=== PATIENT | female | born 1990 | race African-American/Black ===

== ENCOUNTER 2019-06-15 19:39 | Inpatient (IN) | payer OTHER ==
--- NOTE | 2019-06-15 19:47 | PDOC ---
History of Present Illness - General Chief Complaint: Weakness Stated Complaint: WEAKNESS History Source: Parent(s) - History of Present Illness Initial Comments: 06/15/19 20:22 Patient is a 29 year old female with PMH of cerebral palsy and HTN who presents with AMS. Pt is poor historian, mother at bedside to assist with history. Pt was last seen at baseline this afternoon. Around 4:30pm, her sister noticed pt' s eyes were glazed over, she was ambulating uneasily, and appeared "out of it". Then, around 6:30pm, her mother went to get her for dinner and pt was complaining of dizziness and again seemed "off and not feeling well". Pt's mother reports that she has not taken any of her prescribed medications for a month because they "ran out". When asked why they did not contact pt's PCP, they report they were "unable to get ahold of her". Pt last saw her PCP 6 months ago. They deny any seizures or falls. No recent illnesses or sick contacts. Deny alcohol or drug use. Pt vomited once when arriving to ED. She is alert and oriented x3 but is slow to respond. Can follow commands. When asked, reports she is dizzy, but denies any other symptoms. PCP: Dr. Daniels ([place]) PMH: per HPI Surgery hx: denies Allergies: NKDA Meds: HCTZ 25mg, enalapril 5mg, norvasc 5mg Past History - Past Medical History Allergies/Adverse Reactions: Allergies Allergy/AdvReac Type Severity Reaction Status Date / Time No Known Allergies Allergy Verified 06/15/19 20:33 - Psycho Social/Smoking Cessation Hx Smoking History: Never smoked Have you smoked in the past 12 months: No Information on smoking cessation initiated: No Hx Alcohol Use: No Drug/Substance Use Hx: No *Physical Exam - Vital Signs Last Vital Signs Temp Pulse Resp BP Pulse Ox 97.6 F 76 18 174/126 H 100 06/15/19 19:40 06/15/19 19:40 06/15/19 19:40 06/15/19 19:40 06/15/19 19:40
[2019-06-15] MEDS ORDERED: amLODIPine BESYLATE 5 MG TABLET (FP) PO ONE (20:21)
--- NOTE | 2019-06-15 20:31 | PDOC ---
Documentation entered by Santos Hager SCRIBE, acting as scribe for Niru Carrasquillo DO. Niru Carrasquillo DO: This documentation has been prepared by the Madan simon Daniel, SCRIBE, under my direction and personally reviewed by me in its entirety. I confirm that the documentation accurately reflects all work, treatment, procedures, and medical decision making performed by me. Attending Attestation - Resident Resident Name: Mayelin Hickman - ED Attending Attestation I have performed the following: I have examined & evaluated the patient, The case was reviewed & discussed with the resident, I agree w/resident's findings & plan, Exceptions are as noted - HPI HPI: 06/15/19 20:43 The patient is a 29 year old female with a past medical history of cerebral palsy, HTN, and blindness here today for evaluation of altered mental status. The patients mother reports that the patient came home from her day program and was off balanced and not herself. The mother reports that the patient hasn t taken her medications in one month and hasnt seen her doctor in 6 months. The mother states that the patient has had her normal PO intake and that the family had a cold last week. Patient reports feeling dizzy especially when sitting up. Patient vomited once while in the ER. The patients mother notes one similar episode that happened last year. Patient denies any pain. Allergies: NKA PCP: Dr. Daniels ([facility]) - Physicial Exam PE: 06/15/19 20:43 Constitutional: Awake, alert, oriented. No acute distress. Head: Normocephalic. Atraumatic Eyes: +eye gaze issues secondary to blindness. EOMI. Conjunctivae are not pale. ENT: Mucous membranes are moist and intact. Posterior pharynx without exudates or erythema. Uvula midline. Neck: Supple. Full ROM. No lymphadenopathy. Cardiovascular: Regular rate. Regular rhythm. S1, S2 regular. Distal pulses are 2+ and symmetric. Pulmonary/Chest: No evidence of respiratory distress. Clear to auscultation bilaterally No wheezing, rales or rhonchi. Abdominal: Soft and non-distended. There is no tenderness. No rebound, guarding or rigidity. No organomegaly. No palpable masses. Good bowel sounds. Back: No CVA tenderness. Musculoskeletal: No edema. No cyanosis. No clubbing. Full range of motion in all extremities. No calf tenderness. Radial/pedal pulses are intact and 2+ bilaterally Skin: Skin is warm and dry. No petechiae. No purpura. Neurological: Alert and oriented to person, place, and time. Cranial nerves II -XII are grossly intact. Normal speech. Strength is grossly symmetric. No sensory deficits. Psychiatric: Normal interaction, affect and behavior. - Medical Decision Making 06/15/19 20:28 I, Dr. Niru Carrasquillo, DO, attest that this document has been prepared under my direction and personally reviewed by me in its entirety. I further attest, that it accurately reflects all work, treatment, procedures and medical decision -making performed by me. 06/15/19 20:28 a/p: 29yo female with hx of CP - treated at [facility] and hx of htn who has been off her meds x 1m -came home from day program confused, glazed look, altered, off balance -denies falls -c/o feeling lightheaded when she sits up -denies symptoms at this time -has not had BP meds x 1m -last seen by PMD x 6m ago -will send labs, ekg, trop, head ct, cxr -will straight cath for ua -neuro at baseline -speech at baseline -will start norvasc -prior meds show norvasc, hctz, enalapril -will monitor and reassess 06/15/19 22:13 pt with elevated wbc head ct shows chronic congenital changes ua without infection cxr pending EKG from 2018 shows t wave inversions anterior leads so ekg is unchanged from prior 06/15/19 23:04 cxr clear 06/15/19 23:05 bp still elevated will add hctz 06/15/19 23:15 pt with a near syncopal episode, altered ms earlier today with elevated bp will need obs tele 06/15/19 23:39 case discussed with JOSEHONY who accepts pt to service family and patient updated on labs and imaging Discharge - Discharge Information Problems reviewed: Yes Clinical Impression/Diagnosis: Near syncope, Uncontrolled hypertension Condition: Fair - Admission Yes - Follow up/Referral Referrals: Mayelin Daniels MD [Primary Care Provider] - - Patient Discharge Instructions - Post Discharge Activity Heart Score/ECG Review - ECG Intrepretation Comment:: 06/15/19 21:16 sinus at 78, nl axis, t wave inversions v2-3, abnl ekg, - call placed to [facility] to obtain prior EKG, trop pending
[2019-06-15 20:59] LABS: BASO % 0.7 % (0-2.0); HEMATOCRIT 31.8 % (32.4-45.2); HEMOGLOBIN 9.9 GM/dL (10.7-15.3); LYMPH % 14.4 % (8-40); MEAN CELL VOLUME 74.1 fl (80-96); MONO % 3.7 % (3.8-10.2); NEUT % 80.2 % (42.8-82.8); PLATELET COUNT 350 K/MM3 (134-434); RBC 4.29 M/mm3 (3.60-5.2); RDW 13.2 % (11.6-15.6); WHITE BLOOD COUNT 14.9 K/mm3 (4.0-10.0)
[2019-06-15] MEDS ORDERED: amLODIPine BESYLATE 5 MG TABLET (FP) ONE (21:12)
[2019-06-15 21:41] LABS: ALBUMIN 3.3 g/dl (3.4-5.0); ALK PHOS 56 U/L (45-117); ANION GAP 8 MMOL/L (8-16); BILIRUBIN,TOTAL 0.2 mg/dL (0.2-1); BLOOD UREA NITROGEN 11.2 mg/dL (7-18); CALCIUM 8.7 mg/dL (8.5-10.1); CHLORIDE 107 mmol/L (98-107); CO2 25 mmol/L (21-32); CREATININE 0.5 mg/dL (0.55-1.3); GLUCOSE,RANDOM 92 mg/dL (74-106); POTASSIUM 3.9 mmol/L (3.5-5.1); SGOT/AST 12 U/L (15-37); SGPT/ALT 19 U/L (13-61); SODIUM 141 mmol/L (136-145); TOT PROT 7.2 g/dl (6.4-8.2)
[2019-06-15 22:11] LABS: EPI CELLS 5.5 /HPF (0-5/HPF); HYALINE CASTS 6 /lpf (0-8); URINE APPEARANCE CLOUDY; URINE BILIRUBIN NEGATIVE (NEGATIVE); URINE COLOR YELLOW; URINE GLUCOSE (UA) NEGATIVE (NEGATIVE); URINE KETONE NEGATIVE (NEGATIVE); URINE LEUK ESTERASE NEGATIVE (NEGATIVE); URINE NITRITE NEGATIVE (NEGATIVE); URINE PROTEIN TRACE (NEGATIVE); URINE RBC 4 /hpf (0-4); URINE WBC 1 /hpf (0-5)
[2019-06-15] MEDS ORDERED: HYDROCHLOROTHIAZIDE 25 MG TABLET (FP) PO ONE (23:05)
[2019-06-15] MEDS ORDERED: HYDROCHLOROTHIAZIDE 25 MG TABLET (FP) ONE (23:15)
--- NOTE | 2019-06-16 00:13 | PN ---
Teaching Attending Note Name of Resident: Saeed Benson ATTENDING PHYSICIAN STATEMENT I saw and evaluated the patient. I reviewed the resident's note and discussed the case with the resident. I agree with the resident's findings and plan as documented. SUBJECTIVE: 29 year old female with PMH of cerebral palsy and HTN who presents with AMS As observed by her sister and mother. Pt's mother reported that she has not taken any of her prescribed medications for a month because they "ran out". When asked why they did not contact pt's PCP, they report they were "unable to get ahold of her" OBJECTIVE: Last Vital Signs Temp Pulse Resp BP Pulse Ox 97.8 F 83 18 169/109 H 100 06/15/19 20:07 06/15/19 22:35 06/15/19 22:35 06/15/19 22:35 06/15/19 22:35 GENERAL: Well developed, well nourished. Awake and alert. No acute distress. HEENT: Normocephalic, atraumatic. PERRLA, EOMI. No conjunctival pallor. Sclera are non- icteric. Moist mucous membranes. Oropharynx is clear. NECK: Supple. Full ROM. No JVD. Carotid pulses 2+ and symmetric, without bruits. No thyromegaly. No lymphadenopathy. CARDIOVASCULAR: Regular rate and rhythm. No murmurs, rubs, or gallops. Distal pulses are 2+ and symmetric. PULMONARY: No evidence of respiratory distress. Lungs clear to auscultation bilaterally. No wheezing, rales or rhonchi. ABDOMINAL: Soft. Non-tender. Non-distended. No rebound or guarding. No organomegaly. Normoactive bowel sounds. MUSCULOSKELETAL Normal range of motion at all joints. No bony deformities or tenderness. No CVA tenderness. EXTREMITIES: No cyanosis. No clubbing. No edema. No calf tenderness. SKIN: Warm and dry. Normal capillary refill. No rashes. No jaundice. NEUROLOGICAL: Alert, awake, appropriate. Cranial nerves 2-12 intact. No deficits to light touch and temperature in face, upper extremities and lower extremities. No motor deficits in the in face, upper extremities and lower extremities. Normoreflexic in the upper and lower extremities. Normal speech. Toes are down- going bilaterally. Gait is normal without ataxia. PSYCHIATRIC: Cooperative. Good eye contact. Appropriate mood and affect. Abnormal Lab Results 12/11/19 12/11/19 12/11/19 20:51 20:51 21:00 WBC 14.9 H Hgb 9.9 L Hct 31.8 L MCV 74.1 L MCH 23.0 L MCHC 31.0 L Absolute Neuts (auto) 12.0 H Monocytes % 3.7 L Creatinine 0.5 L AST 12 L Albumin 3.3 L Urine Blood 3+ H Imaging studies reviewed Head CT reviewed with reportno CT evidence of acute intracranial pathology, marketed symmetric exvacuodilatation of the lateral ventricles is noted posteriorly probably on a congenital basis. EKG showed sinus rhythm ASSESSMENT AND PLAN: Severe asymptomatic hypertension Altered mental statusresolved Leukocytosisno evidence of infection Admit to MedSurg Check orthostatics Ordered clonidine 0.2 mg p.o. stat for severe asymptomatic hypertension Monitor vital signs closely Restart home blood pressure medications and titrate accordingly 2 g sodium diet Transthoracic echo Avoid sedatives including opiates at this time Trend CBC Monitor electrolytes and replete PRN Heparin subcutaneously for DVT prophylaxis
[2019-06-16] MEDS ORDERED: amLODIPine BESYLATE 5 MG TABLET (FP) PO ONE (00:15)
[2019-06-16] MEDS ORDERED: amLODIPine BESYLATE 5 MG TABLET (FP) ONE (00:19)
[2019-06-16] MEDS ORDERED: cloNIDine HCL 0.1 MG TABLET PO ONE (00:23)
[2019-06-16] MEDS ORDERED: cloNIDine HCL 0.1 MG TABLET ONE (00:28)
[2019-06-16 00:36] LABS: URINE BACTERIA 5 /hpf (NEGATIVE)
--- NOTE | 2019-06-16 02:02 | HP ---
CHIEF COMPLAINT: AMS PCP: Mayelin Daniels MD (Located within [facility]) HISTORY OF PRESENT ILLNESS: 29 y/o female PMH cerebral palsy, BL blindness from , and HTN c/o sensation of unsteadiness. She states that after a hot shower this afternoon 15 Jun 2019, she felt unsteady on her feet. She endorses dizziness but no SOB, CP, or CHISHOLM. No fall, tongue biting, seizure, aura, and LOC. Grandmother/HCP at bedside, Penny, says that the pt was not verbally responding with usual rapidity. Later in the evening the pt had home-made spinach and fried chicken, shortly after vomited x2 food containing, NBNB emesis. She denies nausea, diarrhea, constipation, chills, and fever. She attends [facility] () day- time special needs care facility and had NOT experienced similar symptoms earlier. Other people in have been sick but the pt denies recent illness, travel, or new foods. She is able to walk short distances at home but otherwise uses wheelchair for mobility. The grandmother woefully endorses that she has not been able to get the pt's regular home medications for some time; she estimates 1 month 2/2 family stress and heavy work load from [employer]. These medications include 3 antihypertensives. Med rec from pharmacy reveals rx have not been collected since December 2018. 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 She endorses increase in duration of menses to 1 week from 5 days since 2018. She uses 4 pads per day. She denies dysuria, polyuria, and hematuria. ER course was notable for: (1) Persistent elevated BP tx: Amlodepine 5 mg PO 20:21, hctz 12.5 mg 23:05 (180 /114), amlodepine 5 mg PO 00:15 (200/127), and clonidine 0.2 mg PO 00:23 (122/76 ) (2) CT head negative Recent Travel: Denies PAST MEDICAL HISTORY: Cerebral palsy, BL blindness from , and HTN Family History: Mother PAST SURGICAL HISTORY: Denies Social History: Smoking: Never Alcohol: Never Drugs: Never Lived at home with grandmother and 18 y/o brother whom attends [employer]. Sexual history: Not sexually active, no h/o STI Allergies: No Known Allergies Allergy (Verified 06/15/19 20:33) HOME MEDICATIONS: Medication Instructions Recorded Amlodipine Besylate 5 mg PO DAILY 06/16/19 Ascorbic Acid/Ascorbate Sodium 250 mg PO DAILY 06/16/19 [Vitamin C 250 mg Tablet Chew] Cholecalciferol (Vitamin D3) 1 tablet PO DAILY 06/16/19 [Vitamin D3] Enalapril Maleate 5 mg PO DAILY 06/16/19 Ferrous Sulfate [Iron] 325 mg PO DAILY 06/16/19 REVIEW OF SYSTEMS CONSTITUTIONAL: Absent: fever, chills, diaphoresis, generalized weakness, malaise, loss of appetite, weight change HEENT: Absent: rhinorrhea, nasal congestion, throat pain, throat swelling, difficulty swallowing, mouth swelling, ear pain, eye pain, visual changes CARDIOVASCULAR: Absent: chest pain, syncope, palpitations, irregular heart rate, lightheadedness , peripheral edema RESPIRATORY: Absent: cough, shortness of breath, dyspnea with exertion, orthopnea, wheezing, stridor, hemoptysis GASTROINTESTINAL: Absent: abdominal pain, abdominal distension, nausea, vomiting, diarrhea, constipation, melena, hematochezia GENITOURINARY: Absent: dysuria, frequency, urgency, hesitancy, hematuria, flank pain, genital pain MUSCULOSKELETAL: Absent: myalgia, arthralgia, joint swelling, back pain, neck pain SKIN: Absent: rash, itching, pallor HEMATOLOGIC/IMMUNOLOGIC: Absent: easy bleeding, easy bruising, lymphadenopathy, frequent infections ENDOCRINE: Absent: unexplained weight gain, unexplained weight loss, heat intolerance, cold intolerance NEUROLOGIC: Absent: headache, focal weakness or paresthesias, dizziness, unsteady gait, seizure, mental status changes, bladder or bowel incontinence PSYCHIATRIC: Absent: anxiety, depression, suicidal or homicidal ideation, hallucinations. PHYSICAL EXAMINATION Vital Signs - 24 hr 06/15/19 06/15/19 06/15/19 19:40 20:07 22:35 Temperature 97.6 F 97.8 F Pulse Rate 76 Pulse Rate [ 83 Apical] Respiratory 18 18 Rate Blood Pressure 174/126 H Blood Pressure 169/109 H [Right Arm] O2 Sat by Pulse 100 100 Oximetry (%) 06/16/19 06/16/19 06/16/19 00:14 00:22 00:33 Temperature Pulse Rate Pulse Rate [ 76 87 81 Apical] Respiratory 20 20 16 Rate Blood Pressure Blood Pressure 180/120 H 200/127 H 178/109 H [Right Arm] O2 Sat by Pulse 100 100 100 Oximetry (%) 06/16/19 06/16/19 00:57 01:32 Temperature Pulse Rate Pulse Rate [ 72 77 Apical] Respiratory 20 18 Rate Blood Pressure Blood Pressure 156/111 H 122/76 [Right Arm] O2 Sat by Pulse 100 100 Oximetry (%) Orthostatic NEGATIVE GENERAL: AOx3, in no acute distress, resting in bed HEAD: NCAT EYES: LUI. BL blindness. Only able to appreicate gross movement and light/ dark. LEFT eye abducted on forward gaze. ENT: Ears normal, nares patent, oropharynx clear without exudates. Moist mucous membranes. NECK: Normal range of motion, supple without lymphadenopathy, JVD, or masses. LUNGS: CTAB. No wheezes, and no crackles. No accessory muscle use. HEART: RRR s1 s2 ABDOMEN: Soft, BS present in all 4 quadrants, non-distended, no JVD, MUSCULOSKELETAL: BL LE deformity. No CVA tenderness. UPPER EXTREMITIES: LUE contracted with on/off tremor. 2+ pulses, warm, well- perfused. No cyanosis. No clubbing. No peripheral edema. LOWER EXTREMITIES: 2+ pulses, warm, well-perfused. No calf tenderness. No peripheral edema. NEUROLOGICAL: No focal deficits. Cranial nerves II-XII intact. Normal speech. PSYCHIATRIC: Cooperative. Appropriate mood and affect. SKIN: Warm, dry, normal turgor, no rashes or lesions noted, normal capillary refill. Laboratory Results - last 24 hr 06/15/19 06/15/19 06/15/19 20:51 20:51 21:00 WBC 14.9 H RBC 4.29 Hgb 9.9 L Hct 31.8 L MCV 74.1 L MCH 23.0 L MCHC 31.0 L RDW 13.2 Plt Count 350 MPV 9.0 Absolute Neuts (auto) 12.0 H Neutrophils % 80.2 Lymphocytes % 14.4 Monocytes % 3.7 L Eosinophils % 1.0 Basophils % 0.7 Nucleated RBC % 0 Sodium 141 Potassium 3.9 Chloride 107 Carbon Dioxide 25 Anion Gap 8 BUN 11.2 Creatinine 0.5 L Est GFR (CKD-EPI)AfAm 150.52 Est GFR (CKD-EPI)NonAf 129.87 Random Glucose 92 Calcium 8.7 Total Bilirubin 0.2 AST 12 L ALT 19 Alkaline Phosphatase 56 Creatine Kinase 49 Troponin I < 0.02 Total Protein 7.2 Albumin 3.3 L Urine Color Yellow Urine Appearance Cloudy Urine pH 7.0 Ur Specific Palmer 1.021 Urine Protein Trace Urine Glucose (UA) Negative Urine Ketones Negative Urine Blood 3+ H Urine Nitrite Negative Urine Bilirubin Negative Urine Urobilinogen 1.0 Ur Leukocyte Esterase Negative Urine WBC (Auto) 1 Urine RBC (Auto) 4 Urine Casts (Auto) 6 U Epithel Cells (Auto) 5.5 Urine Bacteria (Auto) [address]: No CT evidence of acute intracranial pathology, marketed symmetric exvacuodilatation of the lateral ventricles is noted posteriorly probably on a congenital basis. ASSESSMENT/PLAN: 29 y/o female PMH cerebral palsy, BL blindness from , and HTN c/o sensation of unsteadiness. In ED sustained elevated BP treated with amlodepine, hctz, and clonidine # Hypertensive urgency - No home meds likely for over 1 month - Restart home regimen of: HCTZ 25 mg PO QD, enalapril 5 mg PO QD, amlodepie 5 mg PO QD. - Refer to social work for assistance - possibly CERTIFIED MEDICAL DOSIMETRIST? Rx delivery service? - Orthostatics negative - Questionable syncopal episode after shower: Echo # Microcytic anemia - Increase in menstrual bleeding over last year - H/H 9.9/31.8 - Serum iron, ferritin, TIBC, stool occult blood - Vitamin B12 level - TSH - Venofer - Safety Investigator visit out-pt # Viral gastritis - Supportive/conservative care - Cosnider flu swab # Leukocytosis - WBC 14.9 Sick contacts at school - Poss. viral illness #F/E/N - NS gently - Cont. to monitor - Low sodium diet # DVT prophylaxis - Heparin SQ # Disposition - Admit to med/surg Saeed Benson MD Visit type - Emergency Visit Emergency Visit: Yes ED Registration Date: 06/15/19 Care time: The patient presented to the Emergency Department on the above date and was hospitalized for further evaluation of their emergent condition. - New Patient This patient is new to me today: No - Critical Care Critical Care patient: No ATTENDING PHYSICIAN STATEMENT I saw and evaluated the patient. I reviewed the resident's note and discussed the case with the resident. I agree with the resident's findings and plan as documented. SUBJECTIVE: OBJECTIVE: ASSESSMENT AND PLAN:
[2019-06-16] MEDS ORDERED: IRON SUCROSE INJECTION 100 MG in SODIUM CHLORIDE 95 ML IVPB ONE (04:16)
[2019-06-16] MEDS: HEPARIN NA (PORCINE) 5,000 UNITS/ML 1ML VIAL SQ SCH ×3 (06:51→22:15)
[2019-06-16] MEDS ORDERED: PT OWN MED DRAWER 7, Y5N ONE ×2 (08:06→13:17)
[2019-06-16 08:56] VITALS: BMI 25.3
[2019-06-16] MEDS ORDERED: FLU VACCINE QUAD 60 MCG/0.5 ML (MDV 19-20) IM ONE (10:00)
[2019-06-16] MEDS: FERROUS SO4 325 MG TABLET (FP) PO SCH (13:24)
[2019-06-16] MEDS: CHOLECALCIFEROL (VIT D3) 1,000 UNIT (25 MCG) TABLET PO SCH (13:24)
[2019-06-16] MEDS: amLODIPine BESYLATE 5 MG TABLET (FP) PO SCH (13:24)
[2019-06-16] MEDS: ENALAPRIL MALEATE 5 MG TABLET (FP) PO SCH (13:24)
[2019-06-16] MEDS: ASCORBIC ACID 250 MG TABLET (FP) PO SCH (13:24)
--- NOTE | 2019-06-16 14:42 | EKG ---
Test Reason : Blood Pressure : / mmHG Vent. Rate : 078 BPM Atrial Rate : 078 BPM P-R Int : 160 ms QRS Dur : 074 ms QT Int : 374 ms P-R-T Axes : 068 074 066 degrees QTc Int : 426 ms NORMAL SINUS RHYTHM T WAVE ABNORMALITY, CONSIDER ANTERIOR ISCHEMIA ABNORMAL ECG NO PREVIOUS ECGS AVAILABLE Confirmed by FREDDY ZHANG MD ([id number]) on 06/16/2019 2:42:21 PM Referred By: Confirmed By:FREDDY ZHANG MD
--- NOTE | 2019-06-16 15:33 | ECHO ---
Name: RONNIE ANTUNEZ Exam:Adult Echocardiogram Study Date: 06/16/2019 10:28 AM Age: 29 yrs Height: 60 in Weight: 130 lb BSA: 1.6 m2 MMode/2D Measurements & Calculations IVSd: 0.65 cm Ao root diam: 2.8 cm LVIDd: 3.9 cm LA dimension: 2.5 cm LVIDs: 2.4 cm ACS: 1.8 cm LVPWd: 0.68 cm IVSs: 0.96 cm LVPWs: 0.96 cm EDV(Teich): 64.8 ml ESV(Teich): 19.7 ml Doppler Measurements & Calculations MV E max dante: 77.0 cm/sec Ao V2 max: 108.6 cm/sec MV A max dante: 67.1 cm/sec Ao max P.7 mmHg MV E/A: 1.1 Ao V2 mean: 71.9 cm/sec Ao mean P.3 mmHg Ao V2 VTI: 20.0 cm MR max dante: 276.9 cm/sec Med Peak E' Dante: 6.0 cm/sec MR max P.7 mmHg Med E/e': 12.7 Lat Peak E' Dante: 5.8 cm/sec Lat E/e': 13.4 Procedure A complete two-dimensional transthoracic echocardiogram was performed (2D, M-mode, Doppler and color flow Doppler). Left Ventricle The left ventricular size, thickness and function are normal. The left ventricular ejection fraction is normal. Ejection Fraction = 60-65%. The left ventricular wall motion is normal. Right Ventricle The right ventricle is normal in size and function. Atria Normal left and right atrial size and function. Mitral Valve There is no mitral regurgitation noted. Tricuspid Valve There is trace tricuspid regurgitation. There was insufficient TR detected to calculate RV systolic p ressure. Aortic Valve No hemodynamically significant valvular aortic stenosis. No aortic regurgitation is present. Pulmonic Valve There is no pulmonic valvular regurgitation. Great Vessels The aortic root is normal size. Pericardium/Pleura There is no pericardial effusion. Interpretation Summary The left ventricular size, thickness and function are normal The right ventricle is normal in size and function. There is trace tricuspid regurgitation. MD Karthikeyan Hathaway 06/16/2019 03:32 PM
--- NOTE | 2019-06-16 16:40 | PN ---
Physical Exam: SUBJECTIVE: Patient seen and examined in the morning. No acute events overnight. No complaints of chest pain, shortness of breath, abdominal pain, nausea, vomiting, diarrhea. OBJECTIVE: Vital Signs Period Temp Pulse Resp BP Sys/Santiago Pulse Ox Last 24 Hr 97.6 F-98.3 F 72-112 16-20 118-200/66-127 99-100 GENERAL: The patient is awake, alert, and fully oriented, in no acute distress. HEAD: NCAT EYES: PERRLA. BL blindness. ENT: Ears normal, nares patent, oropharynx clear without exudates. LUNGS: Breath sounds equal, clear to auscultation bilaterally, no wheezes, no crackles HEART: Regular rate and rhythm, S1, S2 without murmur, rub or gallop. ABDOMEN: Soft, nontender, nondistended, normoactive bowel sounds, no guarding EXTREMITIES: Left upper extremity is contracted. Lower extremity is warm and well perfused. 2+ pulses NEUROLOGICAL: Cranial nerves II through XII grossly intact. Normal speech PSYCH: Normal mood, normal affect. SKIN: Warm, dry, normal turgor, no rashes or lesions noted Laboratory Results - last 24 hr 06/15/19 06/15/19 06/15/19 20:51 20:51 21:00 WBC 14.9 H RBC 4.29 Hgb 9.9 L Hct 31.8 L MCV 74.1 L MCH 23.0 L MCHC 31.0 L RDW 13.2 Plt Count 350 MPV 9.0 Absolute Neuts (auto) 12.0 H Neutrophils % 80.2 Lymphocytes % 14.4 Monocytes % 3.7 L Eosinophils % 1.0 Basophils % 0.7 Nucleated RBC % 0 Sodium 141 Potassium 3.9 Chloride 107 Carbon Dioxide 25 Anion Gap 8 BUN 11.2 Creatinine 0.5 L Est GFR (CKD-EPI)AfAm 150.52 Est GFR (CKD-EPI)NonAf 129.87 Random Glucose 92 Calcium 8.7 Total Bilirubin 0.2 AST 12 L ALT 19 Alkaline Phosphatase 56 Creatine Kinase 49 Troponin I < 0.02 Total Protein 7.2 Albumin 3.3 L Urine Color Yellow Urine Appearance Cloudy Urine pH 7.0 Ur Specific [place] 1.021 Urine Protein Trace Urine Glucose (UA) Negative Urine Ketones Negative Urine Blood 3+ H Urine Nitrite Negative Urine Bilirubin Negative Urine Urobilinogen 1.0 Ur Leukocyte Esterase Negative Urine WBC (Auto) 1 Urine RBC (Auto) 4 Urine Casts (Auto) 6 U Epithel Cells (Auto) 5.5 Urine Bacteria (Auto) 5 Active Medications Generic Name Dose Route Start Last Admin Trade Name Winston PRN Reason Stop Dose Admin Amlodipine Besylate 5 mg 06/16/19 10:00 06/16/19 13:24 Norvasc - PO 5 mg DAILY AYDE Administration Ascorbic Acid 250 mg 06/16/19 10:00 06/16/19 13:24 Vitamin C - PO 250 mg DAILY AYDE Administration Cholecalciferol 2,000 unit 06/16/19 10:00 06/16/19 13:24 Vitamin D3 - PO 2,000 unit DAILY AYDE Administration Enalapril Maleate 5 mg 06/16/19 10:00 06/16/19 13:24 Vasotec - PO 5 mg DAILY AYDE Administration Ferrous Sulfate 325 mg 06/16/19 10:00 06/16/19 13:24 Feosol - PO 325 mg DAILY AYDE Administration Heparin Sodium (Porcine) 5,000 unit 06/16/19 06:00 06/16/19 13:38 Heparin - SQ Not Given TID AYDE ASSESSMENT/PLAN: 29 F PMH cerebral palsy, BL blindness, HTN who presented with hypertensive urgency and complaints of unsteady gait. 1) Hypertensive urgency -Patient has not been taking home medications due to difficulty getting medication -Patient is normotensive after given home medications in ED -Enalapril 5 mg PO Qdaily -Amlodipine 5 mg PO Qdaily. Can give additional amlodipine if needed for hypertension. -Social work working with family to manage resources for patient 2) Unsteady gait -Patient is able to ambulate short distances she is familiar with- room to room in her apartment -Orthostatics negative -Echo shows: The left ventricular size, thickness and function are normal. The right ventricle is normal in size and function. There is trace tricuspid regurgitation. 3)Microcytic anemia -H/H 9.9/31.8 -F/U iron studies -F/U B12 4)Gastritis -Patient had 1 episode of NBNB vomiting. -Supportive/conservative care 5)Leukocytosis -WBC of 14.9 on admission -Patient has numerous sick contacts at home and school -F/U flu swab F:Oral Hydratoin E:Monitor BMP N:Sodium Controlled Diet DVT: Heparin 5000 unit SQ TID Visit type - Emergency Visit Emergency Visit: Yes ED Registration Date: 06/15/19 Care time: The patient presented to the Emergency Department on the above date and was hospitalized for further evaluation of their emergent condition. - New Patient This patient is new to me today: Yes Date on this admission: 06/16/19 - Critical Care Critical Care patient: No ATTENDING PHYSICIAN STATEMENT I saw and evaluated the patient. I reviewed the resident's note and discussed the case with the resident. I agree with the resident's findings and plan as documented. SUBJECTIVE: OBJECTIVE: ASSESSMENT AND PLAN:
--- NOTE | 2019-06-16 18:53 | PN ---
Teaching Attending Note Name of Resident: Washington Betancur ATTENDING PHYSICIAN STATEMENT I saw and evaluated the patient. I reviewed the resident's note and discussed the case with the resident. I agree with the resident's findings and plan as documented. SUBJECTIVE: Feeling better - no more lightheadedness. No headache/visual disturbance. No nausea/vomiting. OBJECTIVE: Afebrile, Hemodynamically Stable. Last Vital Signs Temp Pulse Resp BP Pulse Ox 98.0 F 94 H 18 118/74 100 06/16/19 16:20 06/16/19 16:20 06/16/19 16:20 06/16/19 16:20 06/16/19 16:00 HEENT - Atramatic. Strabismus Heart - S1, S2, RRR Lungs - clear to auscultation Abdomen - soft, non-tender. Bowel Sounds normal. Extremities - no calf tenderness. Laboratory Results - last 24 hr 06/15/19 06/15/19 06/15/19 20:51 20:51 21:00 WBC 14.9 H RBC 4.29 Hgb 9.9 L Hct 31.8 L MCV 74.1 L MCH 23.0 L MCHC 31.0 L RDW 13.2 Plt Count 350 MPV 9.0 Absolute Neuts (auto) 12.0 H Neutrophils % 80.2 Lymphocytes % 14.4 Monocytes % 3.7 L Eosinophils % 1.0 Basophils % 0.7 Nucleated RBC % 0 Sodium 141 Potassium 3.9 Chloride 107 Carbon Dioxide 25 Anion Gap 8 BUN 11.2 Creatinine 0.5 L Est GFR (CKD-EPI)AfAm 150.52 Est GFR (CKD-EPI)NonAf 129.87 Random Glucose 92 Calcium 8.7 Total Bilirubin 0.2 AST 12 L ALT 19 Alkaline Phosphatase 56 Creatine Kinase 49 Troponin I < 0.02 Total Protein 7.2 Albumin 3.3 L Urine Color Yellow Urine Appearance Cloudy Urine pH 7.0 Ur Specific [place] 1.021 Urine Protein Trace Urine Glucose (UA) Negative Urine Ketones Negative Urine Blood 3+ H Urine Nitrite Negative Urine Bilirubin Negative Urine Urobilinogen 1.0 Ur Leukocyte Esterase Negative Urine WBC (Auto) 1 Urine RBC (Auto) 4 Urine Casts (Auto) 6 U Epithel Cells (Auto) 5.5 Urine Bacteria (Auto) 5 Current Medications Generic Name Dose Route Start Last Admin Trade Name Freq PRN Reason Stop Dose Admin Amlodipine Besylate 5 mg 06/16/19 10:00 06/16/19 13:24 Norvasc - PO 5 mg DAILY AYDE Administration Ascorbic Acid 250 mg 06/16/19 10:00 06/16/19 13:24 Vitamin C - PO 250 mg DAILY AYDE Administration Cholecalciferol 2,000 unit 06/16/19 10:00 06/16/19 13:24 Vitamin D3 - PO 2,000 unit DAILY AYDE Administration Enalapril Maleate 5 mg 06/16/19 10:00 06/16/19 13:24 Vasotec - PO 5 mg DAILY AYDE Administration Ferrous Sulfate 325 mg 06/16/19 10:00 06/16/19 13:24 Feosol - PO 325 mg DAILY AYDE Administration Heparin Sodium (Porcine) 5,000 unit 06/16/19 06:00 06/16/19 13:38 Heparin - SQ Not Given TID [facility] Home Medications Medication Instructions Recorded Amlodipine Besylate 5 mg PO DAILY 06/16/19 Ascorbic Acid/Ascorbate Sodium 250 mg PO DAILY 06/16/19 [Vitamin C 250 mg Tablet Chew] Cholecalciferol (Vitamin D3) 1 tablet PO DAILY 06/16/19 [Vitamin D3] Enalapril Maleate 5 mg PO DAILY 06/16/19 Ferrous Sulfate [Iron] 325 mg PO DAILY 06/16/19 Hydrochlorothiazide 25 mg PO DAILY 06/16/19 ASSESSMENT AND PLAN: 29 year old female with history of cerebral palsy and HTN who presents with AMS , observed by her sister and mother. Patient has not received any of her prescription meds for 1 month as they "ran out", found to have uncontrolled HTN. 1. 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 BP now better controlled after resuming home anti-hypertensive regimen - Norvac , Enalapril, and HCTZ Echo requested. Telemonitoring Orthostatic vitals PT 2. Leukocytosis, likely reactive. No signs/symptoms of infection. Afebrile. CXR - no acute findings. Will repeat. DVT Px - Heparin SQ
[2019-06-17] MEDS: HEPARIN NA (PORCINE) 5,000 UNITS/ML 1ML VIAL SQ SCH (06:17)
[2019-06-17 07:06] LABS: BASO % 1.2 % (0-2.0); EOS % 1.2 % (0-4.5); HEMOGLOBIN 9.8 GM/dL (10.7-15.3); LYMPH % 24.2 % (8-40); MCH 22.9 pg (25.7-33.7); MCHC 31.8 g/dl (32.0-36.0); MEAN CELL VOLUME 72.1 fl (80-96); MONO % 6.1 % (3.8-10.2); NEUT % 67.3 % (42.8-82.8); PLATELET COUNT 373 K/MM3 (134-434); RBC 4.29 M/mm3 (3.60-5.2); RDW 13.1 % (11.6-15.6); WHITE BLOOD COUNT 9.7 K/mm3 (4.0-10.0)
[2019-06-17 07:52] LABS: BLOOD UREA NITROGEN 10.6 mg/dL (7-18); CREATININE 0.5 mg/dL (0.55-1.3); POTASSIUM 3.6 mmol/L (3.5-5.1)
[2019-06-17] MEDS ORDERED: HYDROCHLOROTHIAZIDE 25 MG TABLET (FP) PO SCH (10:00)
[2019-06-17] MEDS: FERROUS SO4 325 MG TABLET (FP) PO SCH (10:26)
[2019-06-17] MEDS: ASCORBIC ACID 250 MG TABLET (FP) PO SCH (10:27)
[2019-06-17] MEDS: CHOLECALCIFEROL (VIT D3) 1,000 UNIT (25 MCG) TABLET PO SCH (10:27)
[2019-06-17] MEDS: ENALAPRIL MALEATE 5 MG TABLET (FP) PO SCH (10:27)
[2019-06-17] MEDS: amLODIPine BESYLATE 5 MG TABLET (FP) PO SCH (10:27)
[2019-06-17 11:30] VITALS: BP 136/78; PULSE 84; TEMP 99.3
--- NOTE | 2019-06-17 12:40 | PN ---
Teaching Attending Note Name of Resident: Washington Betancur ATTENDING PHYSICIAN STATEMENT I saw and evaluated the patient. I reviewed the resident's note and discussed the case with the resident. I agree with the resident's findings and plan as documented. SUBJECTIVE: Feels well - no lightheadedness/dizziness. No chest pain/ palpitations. OBJECTIVE: Afebrile, Hemodynamically Stable. AAO x 3. Last Vital Signs Temp Pulse Resp BP Pulse Ox 99.3 F 84 20 136/78 100 06/17/19 10:06/17/19 10:00 06/17/19 10:06/17/19 10:06/17/19 08:00 HEENT - Atramatic. Strabismus Heart - S1, S2, RRR Lungs - clear to auscultation Abdomen - soft, non-tender. Bowel Sounds normal. Extremities - no calf tenderness. Laboratory Results - last 24 hr 06/16/19 06/17/19 06/17/19 18:00 06:30 06:30 WBC 9.7 RBC 4.29 Hgb 9.8 L Hct 31.0 L MCV 72.1 L MCH 22.9 L MCHC 31.8 L RDW 13.1 Plt Count 373 MPV 9.0 Absolute Neuts (auto) 6.5 Neutrophils % 67.3 Lymphocytes % 24.2 D Monocytes % 6.1 Eosinophils % 1.2 Basophils % 1.2 Nucleated RBC % 0 Sodium 139 Potassium 3.6 Chloride 105 Carbon Dioxide 27 Anion Gap 7 L BUN 10.6 Creatinine 0.5 L Est GFR (CKD-EPI)AfAm 150.52 Est GFR (CKD-EPI)NonAf 129.87 Random Glucose 89 Calcium 9.0 Iron 34 L TIBC 301 Iron Saturation 11 L Unsaturated IBC 267 Ferritin 39.7 Influenza A (Rapid) Negative Influenza B (Rapid) Negative Current Medications Generic Name Dose Route Start Last Admin Trade Name Freq PRN Reason Stop Dose Admin Amlodipine Besylate 5 mg 06/16/19 10:06/17/19 10:27 Norvasc - PO 5 mg DAILY AYDE Administration Ascorbic Acid 250 mg 06/16/19 10:00 06/17/19 10:27 Vitamin C - PO 250 mg DAILY AYDE Administration Cholecalciferol 2,000 unit 06/16/19 10:00 06/17/19 10:27 Vitamin D3 - PO 2,000 unit DAILY AYDE Administration Enalapril Maleate 5 mg 06/16/19 10:00 06/17/19 10:27 Vasotec - PO 5 mg DAILY AYDE Administration Ferrous Sulfate 325 mg 06/16/19 10:00 06/17/19 10:26 Feosol - PO 325 mg DAILY AYDE Administration Heparin Sodium (Porcine) 5,000 unit 06/16/19 06:00 06/17/19 06:17 Heparin - SQ Not Given TID [facility] Hydrochlorothiazide 25 mg 06/17/19 10:00 06/17/19 10:26 Hctz - PO 25 mg DAILY AYDE Administration Home Medications Medication Instructions Recorded Amlodipine Besylate 5 mg PO DAILY #30 tablet 06/17/19 Ascorbic Acid/Ascorbate Sodium 250 mg PO DAILY #30 tab.chew 06/17/19 [Vitamin C 250 mg Tablet Chew] Cholecalciferol (Vitamin D3) 1 tablet PO DAILY #30 tab.chew 06/17/19 [Vitamin D3] Enalapril Maleate 5 mg PO DAILY #30 tablet 06/17/19 Ferrous Sulfate [Iron] 325 mg PO DAILY #30 tablet 06/17/19 Hydrochlorothiazide 25 mg PO DAILY #30 tablet 06/17/19 ASSESSMENT AND PLAN: 29 year old female with history of cerebral palsy and HTN who presents with AMS , observed by her sister and mother. Patient has not received any of her prescription meds for 1 month as they "ran out", found to have uncontrolled HTN. 1. 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 BP now better controlled after resuming home anti-hypertensive regimen - Norvac , Enalapril, and HCTZ Echo - normal. No Telemonitoring events Medicaly sable for discharge Medication compliance urged to patient and mother. 2. Leukocytosis, likely reactive - resolved. No signs/symptoms of infection. Afebrile. CXR - no acute findings. 4. Iron Deficiency Anemia - chronically on FeSO4 supplementation. Not complaint. No evidence of acute blood loss. H.H Stable. Iron Sat 11% and Ferritin 39. Resume iron replacement and will refer to GI as out-patient for further work-up/Ix. Medically optimized for discharge with PCP and GI follow ups.
--- NOTE | 2019-06-17 14:30 | DS ---
Physical Exam: SUBJECTIVE: Patient seen and examined in the morning. No acute events overnight. No complaints of chest pain, shortness of breath, abdominal pain, nausea, vomiting, diarrhea. OBJECTIVE: Vital Signs Period Temp Pulse Resp BP Sys/Santiago Pulse Ox Last 24 Hr 97.5 F-99.3 F 80-112 18-20 115-136/62-87 100-100 PHYSICAL EXAM GENERAL: The patient is awake, alert, and fully oriented, in no acute distress. HEAD: NCAT EYES: PERRLA. BL blindness. ENT: Ears normal, nares patent, oropharynx clear without exudates. LUNGS: Breath sounds equal, clear to auscultation bilaterally, no wheezes, no crackles HEART: Regular rate and rhythm, S1, S2 without murmur, rub or gallop. ABDOMEN: Soft, nontender, nondistended, normoactive bowel sounds, no guarding EXTREMITIES: Left upper extremity is contracted. Lower extremity is warm and well perfused. 2+ pulses NEUROLOGICAL: Cranial nerves II through XII grossly intact. Normal speech PSYCH: Normal mood, normal affect. SKIN: Warm, dry, normal turgor, no rashes or lesions noted LABS Laboratory Results - last 24 hr 06/16/19 06/17/19 06/17/19 18:00 06:30 06:30 WBC 9.7 RBC 4.29 Hgb 9.8 L Hct 31.0 L MCV 72.1 L MCH 22.9 L MCHC 31.8 L RDW 13.1 Plt Count 373 MPV 9.0 Absolute Neuts (auto) 6.5 Neutrophils % 67.3 Lymphocytes % 24.2 D Monocytes % 6.1 Eosinophils % 1.2 Basophils % 1.2 Nucleated RBC % 0 Sodium 139 Potassium 3.6 Chloride 105 Carbon Dioxide 27 Anion Gap 7 L BUN 10.6 Creatinine 0.5 L Est GFR (CKD-EPI)AfAm 150.52 Est GFR (CKD-EPI)NonAf 129.87 Random Glucose 89 Calcium 9.0 Iron 34 L TIBC 301 Iron Saturation 11 L Unsaturated IBC 267 Ferritin 39.7 Influenza A (Rapid) Negative Influenza B (Rapid) Negative HOSPITAL COURSE: Date of Admission:06/15/19 Date of Discharge: 06/17/19 29 F PMH cerebral palsy, BL blindness, HTN who presented with hypertensive urgency and complaints of unsteady gait. Patient was found to have BP of 200/ 125 on admission, and was given antihypertensive home medications. Patient was started on enalapril 5 mg and amlodipine 5 mg PO daily. Patient had echo which was normal. Patient and family met with rn social work to discuss difficulties with getting medications. Patient was restarted on enalapril 5 mg, amlodipine 5 mg, and HCTZ 25 mg PO for antihypertensive home medications. Imaging done this admission: Echo: The left ventricular size, thickness and function are normal. The right ventricle is normal in size and function. There is trace tricuspid regurgitation. Minutes to complete discharge: 30 Discharge Summary Problems reviewed: Yes Reason For Visit: UNCONTROLLED HYPERTENSION, PRE-SYNCOPE Condition: Improved - Instructions Diet, Activity, Other Instructions: You were admitted to the hospital because you were having dizziness and were found to have really high blood pressure. While you were here we started you back on blood pressure medications. We scanned your brain and it did not show any acute changes. We had physical therapy evaluate you and your ability walk around. Our social work team was able to work with you to help provide your resources for you to obtain your medications and safely stay home. We monitored your heart while you were here and it did not show any irregularities while you were on the monitoring system. MEDICATIONS: Please continue your home medications as directed: For your blood pressure: Amlodipine 5 mg once a day by mouth. Enalapril 5 mg once a day by mouth. Hydrochlorothiazide 25 mg once a day by mouth. Please take your blood pressure medications as prescribed. For your anemia: Ferrous sulfate 325 twice a day by mouth. REFERRALS: Please follow up with Dr. Daniels within 1 week to update her on this admission and to continue your health maintenance. You will need repeat labs in 1 week ( BMP) to check your kidney function. Please follow up with Gastroenterology for further investigation of your ongoing Iron deficiency anemia. SPECIAL INSTRUCTIONS: Please return to the hospital if you have any chest pain, shortness of breath, dizziness, headache, fevers, or weakness, or worsening of your symptoms. Referrals: Mayelin Daniels MD [Primary Care Provider] - 1 Week Janna Betancur MD [Staff Physician] - 1 Week Jayleen Guzman MD [Staff Physician] - 1 Week Roman Castelan MD [Staff Physician] - 1 Week Disposition: HOME - Home Medications Comprehensive Discharge Medication List: Ambulatory Orders Amlodipine Besylate 5 mg PO DAILY #30 tablet 06/17/19 Ascorbic Acid/Ascorbate Sodium [Vitamin C 250 mg Tablet Chew] 250 mg PO DAILY # 30 tab.chew 06/17/19 Cholecalciferol (Vitamin D3) [Vitamin D3] 1 tablet PO DAILY #30 tab.chew Enalapril Maleate 5 mg PO DAILY #30 tablet 06/17/19 Ferrous Sulfate [Iron] 325 mg PO DAILY #30 tablet 06/17/19 Hydrochlorothiazide 25 mg PO DAILY #30 tablet 06/17/19 This patient is new to me today: No Emergency Visit: Yes ED Registration Date: 06/15/19 Care time: The patient presented to the Emergency Department on the above date and was hospitalized for further evaluation of their emergent condition. Critical Care patient: No - Discharge Referral Referred to [facility] Med P.[facility] No ATTENDING PHYSICIAN STATEMENT I saw and evaluated the patient. I reviewed the resident's note and discussed the case with the resident. I agree with the resident's findings and plan as documented. SUBJECTIVE: OBJECTIVE: ASSESSMENT AND PLAN:
== END 2019-06-17 14:03 | disposition home or self-care (01) | DRG 199 ==
LOC: JER 19:39 → OBSVTOIN 23:16 → JERBED 23:16 → J5S 06-16 03:19 → J4W 06-16 15:52
PROVIDERS: ADMIT Internal Medicine
DX: I16.1 Hypertensive emergency (principal); I10 Essential (primary) hypertension; G80.9 Cerebral palsy, unspecified; D50.9 Iron deficiency anemia, unspecified; D72.829 Elevated white blood cell count, unspecified; H54.3 Unqualified visual loss, both eyes; R55 Syncope and collapse; I16.0 Hypertensive urgency; I67.4 Hypertensive encephalopathy
CPT/HCPCS: 36415; 70450-TC; 71045-TC-FY; 80048; 80053; 81003; 82550; 82728; 83540; 83550; 84484; 85025; 87804; 93005; 93010; 93306-TC; 97116-GP; 97162-GP; 99285-25; J0735